=== PATIENT | male | born 1945 | race Caucasian/White ===

== ENCOUNTER 2019-08-25 13:49 | Emergency (ER) | payer MEDICARE, OTHER ==
--- NOTE | 2019-08-25 16:24 | RAD REPORT ---
EXAM DESCRIPTION: RAD - Ribs Left - 08/25/2019 4:14 pm CLINICAL HISTORY: Trip and fall, left-sided rib pain COMPARISON: None. FINDINGS: No displaced rib fracture is seen and no non-displaced rib fractures suspected. No aggress nik rib lesion. No underlying pneumothorax, effusion, infiltrate or pulmonary contusion. Patient has prominent costochondral calcifications. IMPRESSION: Negative left rib series. If there are continued concerns for rib fracture for need for a definitive assessment, CT chest imagi ng could be performed.
--- NOTE | 2019-08-25 16:32 | RAD REPORT ---
EXAM DESCRIPTION: RAD - Chest Single View - 08/25/2019 4:14 pm CLINICAL HISTORY: s/p fall;Chest pain COMPARISON: Rib series same date, no remote imaging TECHNIQUE: AP portable chest image was obtained 08/25/2019 4:14 pm . FINDINGS: No pulmonary contusion or focal lung parenchymal process. Interstitial pattern is prominen t. No comparison is available. In the absence of acute respiratory symptoms this is probably the leo ent's baseline chronic pattern. Heart and vasculature are normal. No measurable pleural effusion and no pneumothorax. No acute bony abnormality seen. No acute aortic findings suspected. IMPRESSION: No acute cardiopulmonary process.
--- NOTE | 2019-08-25 16:39 | RAD REPORT ---
EXAM DESCRIPTION: CT - [id number] - 08/25/2019 4:24 pm CLINICAL HISTORY: fall COMPARISON: No comparisons TECHNIQUE: Axial 5 mm thick images of the head were obtained. Axial 2 mm thick images of the cervic al spine were obtained with sagittal and coronal reconstruction images generated and reviewed. All CT scans are performed using dose optimization technique as appropriate and may include automated exposure control or mA/KV adjustment according to patient size. FINDINGS: No intracranial hemorrhage, mass, edema or acute intracranial finding. No suspicion for ac naga infarction. No extra-axial fluid collections. Patient has mild atrophy. Chronic ischemic changes minimal. Ventricles are in proportion to volume loss. No globe or orbit abnormality seen. Arterial an d physiologic calcifications are present. Mastoid air cells are clear. Chronic sinusitis changes are present in each maxillary sinus with mucos al thickening in the ethmoid and sphenoid sinuses. Chronic sinusitis wall changes are seen in the sph enoid sinus. No air-fluid levels. No globe or orbital content abnormality. Cervical bodies are normal in height. There is slight retrolisthesis of C5 relative to C4 and C6. Pat ient has advanced degenerative change at the dens C1 articulation. C5-6 significant disc space narrow ing with endplate spurring. Multilevel facet joint degenerative changes are present. No fracture or a cute bony abnormality. No pathologic bone process. Bilateral foraminal stenosis at C5-6 from uncovert ebral joint hypertrophy. Posterior endplate spurring changes cause central spinal stenosis down to ap proximately 7 mm. Central canal detail is inherently limited. No paraspinal mass or hematoma. IMPRESSION: Negative CT head examination for acute or significant finding intracranial finding. Negative CT cervical spine examination for fracture or acute finding. Prominent C5-6 degenerative changes causing central spinal stenosis and bilateral foraminal stenosis. Central canal detail is inherently limited. Chronic sinusitis involving the maxillary, sphenoid and possibly ethmoid air cells.
--- NOTE | 2019-08-25 17:02 | EDPHYS ---
Physician Documentation [facility] Name: Hadley Braun Age: 73 yrs Sex: Male : 1945 Arrival Date: 08/25/2019 Time: 13:56 Bed 19 Private MD: [facility] ED Physician Herson Portillo HPI: 08/24 18:21 This 73 yrs old Male presents to ER via Wheelchair with complaints of Fall kdr Injury. 18:21 Details of fall: The patient fell from an upright position, while standing. Onset: The kdr symptoms/episode began/occurred suddenly, this morning, at 11:30. Associated injuries: The patient sustained injury to the head, contusion, injury to the chest, contusion, pain with breathing. Severity of symptoms: At their worst the symptoms were mild, in the emergency department the symptoms are unchanged. The patient has not experienced similar symptoms in the past. The patient has not recently seen a physician. Historical: - Allergies: 14:06 PENICILLINS; tw2 - Home Meds: 14:06 warfarin 5 mg Oral tab 1 tab once daily [Active]; pravastatin 20 mg oral tab 1 tab once tw2 daily [Active]; hydrochlorothiazide 25 mg Oral tab 1 tab 2 times per day [Active]; quanipriil 20 mg 1 tab once a day [Active]; gabapentin 300 mg oral cap 1 cap 3 times per day [Active]; - PMHx: 14:06 Hypertension; Atrial Fib; tw2 - PSHx: 14:06 umbilican hernia; b/l knee replacement; tw2 - Immunization history:: Adult Immunizations. - Social history:: Smoking status: Patient uses. - Immunization history: Last tetanus immunization: unknown. ROS: 18:21 Constitutional: Negative for fever, chills, and weight loss, Eyes: Negative for injury, kdr pain, redness, and discharge, Neck: Negative for injury, pain, and swelling, Respiratory: Negative for shortness of breath, cough, wheezing, and pleuritic chest pain, Abdomen/GI: Negative for abdominal pain, nausea, vomiting, diarrhea, and constipation, Back: Negative for injury and pain, : Negative for injury, bleeding, discharge, and swelling, MS/Extremity: Negative for injury and deformity, Skin: Negative for injury, rash, and discoloration, Neuro: Negative for headache, weakness, numbness, tingling, and seizure activity. Psych: Negative for depression, anxiety, suicide ideation, homicidal ideation, and hallucinations, Allergy/Immunology: Negative for hives, rash, and allergies, Endocrine: Negative for neck swelling, polydipsia, polyuria, polyphagia, and marked weight changes, Hematologic/Lymphatic: Negative for swollen nodes, abnormal bleeding, and unusual bruising. 18:21 Cardiovascular: Positive for chest pain, with cough, with movement, of the anterior aspect of left upper chest and left lateral anterior chest, Negative for edema, orthopnea, palpitations, paroxysmal nocturnal dyspnea. Exam: 18:21 Constitutional: This is a well developed, well nourished patient who is awake, alert, kdr and in no acute distress. Head/Face: Normocephalic, atraumatic. Eyes: Pupils equal round and reactive to light, extra-ocular motions intact. Lids and lashes normal. Conjunctiva and sclera are non-icteric and not injected. Cornea within normal limits. Periorbital areas with no swelling, redness, or edema. Neck: Trachea midline, no thyromegaly or masses palpated, and no cervical lymphadenopathy. Supple, full range of motion without nuchal rigidity, or vertebral point tenderness. No Meningismus. Cardiovascular: Regular rate and rhythm with a normal S1 and S2. No gallops, murmurs, or rubs. Normal PMI, no JVD. No pulse deficits. Respiratory: Lungs have equal breath sounds bilaterally, clear to auscultation and percussion. No rales, rhonchi or wheezes noted. No increased work of breathing, no retractions or nasal flaring. Abdomen/GI: Soft, non-tender, with normal bowel sounds. No distension or tympany. No guarding or rebound. No evidence of tenderness throughout. Back: No spinal tenderness. No costovertebral tenderness. Full range of motion. Skin: Warm, dry with normal turgor. Normal color with no rashes, no lesions, and no evidence of cellulitis. MS/ Extremity: Pulses equal, no cyanosis. Neurovascular intact. Full, normal range of motion. Neuro: Awake and alert, GCS 15, oriented to person, place, time, and situation. Cranial nerves II-XII grossly intact. Motor strength 5/5 in all extremities. Sensory grossly intact. Cerebellar exam normal. Normal gait. Psych: Awake, alert, with orientation to person, place and time. Behavior, mood, and affect are within normal limits. 18:21 Chest/axilla: Inspection: normal, Palpation: tenderness, that is mild, of the anterior aspect of left upper chest and left lateral anterior chest. Vital Signs: 14:01 BP 134 / 71; Pulse 82; Resp 17; Temp 98.5(TE); Pulse Ox 96% on R/A; Weight 129.27 kg tw2 (R); Height 5 ft. 10 in. (177.80 cm) (R); Pain 7/10; 17:05 BP 119 / 67; Pulse 76; Resp 19; Temp 98.4(O); Pulse Ox 98% on R/A; Pain 5/10; ls4 14:01 Body Mass Index 40.89 (129.27 kg, 177.80 cm) tw2 14:01 "if i move, it lessons when i sit still" tw2 [place] Coma Score: 14:09 Eye Response: spontaneous(4). Verbal Response: oriented(5). Motor Response: obeys tw2 commands(6). Total: 15. Trauma Score (Adult): 14:09 Eye Response: spontaneous(1); Verbal Response: oriented(1); Motor Response: obeys tw2 commands(2); Systolic BP: > 89 mm Hg(4); Respiratory Rate: 10 to 29 per min(4); [place] Score: 15; Trauma Score: 12 MDM: 17:01 Patient medically screened. kdr 18:21 Data reviewed: vital signs, nurses notes, lab test result(s), radiologic studies. kdr Counseling: I had a detailed discussion with the patient and/or guardian regarding: the historical points, exam findings, and any diagnostic results supporting the discharge/admit diagnosis, radiology results, the need for outpatient follow up. 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 Exp: ls4 05/01/2021. Lot #: [id number]. } Route: IM; Site: left deltoid; 17:37 Drug: Tylenol 1000 mg Route: PO; ls4 Disposition: 08/25/19 17:01 Discharged to Home. Impression: Chest pain on breathing, Chest pain, unspecified, Chest Wall Contusion, Other slipping, tripping and stumbling and falls. - Condition is Stable. - Discharge Instructions: Chest Wall Pain, [id number], Nonspecific Chest Pain, [id number]. - Prescriptions for Tylenol- Codeine #3 300-30 mg Oral Tablet - take 1 tablet by ORAL route every 4-6 hours As needed; 12 tablet. - Medication Reconciliation Form, Thank You Letter, Prescription Opioid Use form. - Follow up: Wilber Cooley DO; When: 2 - 3 days; Reason: If symptoms return, Further diagnostic work-up, Recheck today's complaints, Continuance of care, Re-evaluation by your physician. - Problem is new. - Symptoms have improved. Signatures: Dispatcher [employer] EDMS Herson Portillo MD MD kdr Annie De La Cruz, RN RN tw2 Julissa Lundberg, RN RN ls4 Corrections: (The following items were deleted from the chart) 17:02 17:01 08/25/2019 17:01 Discharged to Home. Impression: Chest pain on breathing; Chest kdr pain, unspecified; Chest Wall Contusion. Condition is Stable. Forms are Medication Reconciliation Form, Thank You Letter, Antibiotic Education, Prescription Opioid Use. Follow up: Wilber Cooley; When: 2 - 3 days; Reason: If symptoms return, Further diagnostic work-up, Recheck today's complaints, Continuance of care, Re-evaluation by your physician. Problem is new. Symptoms have improved. kdr 17:44 17:02 08/25/2019 17:01 Discharged to Home. Impression: Chest pain on breathing; Chest ls4 pain, unspecified; Chest Wall Contusion; Other slipping, tripping and stumbling and falls. Condition is Stable. Forms are Medication Reconciliation Form, Thank You Letter, Antibiotic Education, Prescription Opioid Use. Follow up: Wilber Cooley; When: 2 - 3 days; Reason: If symptoms return, Further diagnostic work-up, Recheck today's complaints, Continuance of care, Re-evaluation by your physician. Problem is new. Symptoms have improved. kdr
--- NOTE | 2019-08-25 17:02 | ER ---
Nurse's Notes [facility] Name: Hadley Braun Age: 73 yrs Sex: Male : 1945 Arrival Date: 08/25/2019 Time: 13:56 Bed 19 Private MD: Wilber Cooley Diagnosis: Chest pain on breathing;Chest pain, unspecified;Chest Wall Contusion;Other slipping, tripping and stumbling and falls Presentation: 08/24 14:01 Chief complaint: Patient states: i got tripped up about 1130 or so today, i was loading tw2 some stuff and i tripped on something and i that ragged edge on the concrete and my face hit the concrete, i think my chest and LEFT arm hit and then my face hit, and if i cough down on my ribs on the LEFT hurt. Coronavirus screen: Patient denies a cough. Patient denies shortness of breath or difficulty breathing. Patient denies measured and/or subjective temperature greater than 100.4F prior to today's visit. Patient denies travel on a cruise ship or to a country the [facility] currently lists as an affected area. Patient denies contact with known and/or suspected case of COVID-19. Ebola Screen: Patient denies travel to an Ebola-affected area in the 21 days before illness onset. Initial Sepsis Screen: Does the patient meet any 2 criteria? No. Patient's initial sepsis screen is negative. Does the patient have a suspected source of infection? No. Patient's initial sepsis screen is negative. Risk Assessment: Do you want to hurt yourself or someone else? Patient reports no desire to harm self or others. Onset of symptoms. Onset of symptoms was August 25, 2019. 14:01 Method Of Arrival: Wheelchair tw2 14:01 Acuity: ALEXSANDRA 3 tw2 14:07 Care prior to arrival: None. Mechanism of Injury: Fall from standing position. Trauma tw2 event details: Injury occurred in the [facility]. Triage Assessment: 14:03 General: Appears in no apparent distress. obese, well groomed, Behavior is calm, tw2 cooperative, appropriate for age. Pain: Complains of pain in chest and left arm. Trauma Activation: Alert Physician: ED Physician; Name: ; Notified At: ; Arrived At: Physician: General Surgeon; Name: ; Notified At: ; Arrived At: Physician: Radiology; Name: ; Notified At: ; Arrived At: Physician: Respiratory; Name: ; Notified At: ; Arrived At: Physician: Lab; Name: ; Notified At: ; Arrived At: Historical: - Allergies: 14:06 PENICILLINS; tw2 - Home Meds: 14:06 warfarin 5 mg Oral tab 1 tab once daily [Active]; pravastatin 20 mg oral tab 1 tab once tw2 daily [Active]; hydrochlorothiazide 25 mg Oral tab 1 tab 2 times per day [Active]; quanipriil 20 mg 1 tab once a day [Active]; gabapentin 300 mg oral cap 1 cap 3 times per day [Active]; - PMHx: 14:06 Hypertension; Atrial Fib; tw2 - PSHx: 14:06 umbilican hernia; b/l knee replacement; tw2 - Immunization history:: Adult Immunizations. - Social history:: Smoking status: Patient uses. - Immunization history: Last tetanus immunization: unknown. Screenin:20 Abuse screen: Denies threats or abuse. Denies injuries from another. Tuberculosis ls4 screening: No symptoms or risk factors identified. 15:32 Nutritional screening: No deficits noted. Fall Risk Total Davidson Fall Scale indicates ls4 High Risk Score (45 or more points). Fall prevention measures have been instituted. Side Rails Up X 2 Placed Close to Nursing Station Frequent Obs/Assessments Occuring Family Present and informed to notify staff if the need to leave the bedside As available patient and family educated on Fall Prevention Program and Strategies. Primary Survey: 14:09 NO uncontrolled hemorrhage observed. A: The patient is alert. Airway: patent. tw2 Breathing/Chest: Respiratory pattern: regular, Respiratory effort: spontaneous, unlabored, Chest inspection: symmetrical rise and fall of the chest. Circulation: Heart tones present. Disability Alert. Exposure/Environment: All clothing and personal items were removed. Forensic evidence collection is not deemed to be indicated at this time. Items placed in patient belonging bag. 14:09 Reassessment Airway Airway Patent Breathing/Chest Respiratory pattern Regular ls4 Respiratory effort Spontaneous Unlabored Breath sounds Clear Chest inspection Symmetrical Circulation Heart rhythm Sinus rhythm Heart tones Present Pulses Palpable Color [place] Flushed Temperature Warm Dry Disability Alert. Secondary Survey: 15:19 HEENT: No deficits noted. Gastrointestinal: No deficits noted. Abdomen is soft, ls4 non-distended, obese, Bowel sounds present in all quadrants. Palpation No deficit noted : No deficits noted. No signs and/or symptoms were reported regarding the genitourinary system. Musculoskeletal: No deficits noted. No signs and/or symptoms reported regarding the musculoskeletal system. Injury Description: skin tear s to left forearm. Assessment: 14:07 General: Appears in no apparent distress. comfortable. Neuro: No deficits noted. ls4 Cardiovascular: Denies chest pain, diaphoresis, fatigue, lightheadedness, nausea, palpitations, shortness of breath, syncope, vomiting. Respiratory: Airway is patent Respiratory effort is even, unlabored. Respiratory: Breath sounds are clear bilaterally. Derm: Skin is fragile, with poor turgor has skin tears on left forearm. Musculoskeletal: No signs and/or symptoms reported regarding the musculoskeletal system. Circulation, motion, and sensation intact. Capillary refill < 3 seconds, Range of motion: intact in all extremities. 17:38 Reassessment: Patient appears in no apparent distress at this time. Patient and/or ls4 family updated on plan of care and expected duration. Pain level reassessed. Patient is alert, oriented x 3, equal unlabored respirations, skin warm/dry/pink. skin tears cleaned and dressed. neosporing and tegaderm Patient states feeling better. Patient states symptoms have improved. Vital Signs: 14:01 BP 134 / 71; Pulse 82; Resp 17; Temp 98.5(TE); Pulse Ox 96% on R/A; Weight 129.27 kg tw2 (R); Height 5 ft. 10 in. (177.80 cm) (R); Pain 7/10; 17:05 BP 119 / 67; Pulse 76; Resp 19; Temp 98.4(O); Pulse Ox 98% on R/A; Pain 5/10; ls4 14:01 Body Mass Index 40.89 (129.27 kg, 177.80 cm) tw2 14:01 "if i move, it lessons when i sit still" tw2 [place] Coma Score: 14:09 Eye Response: spontaneous(4). Verbal Response: oriented(5). Motor Response: obeys tw2 commands(6). Total: 15. Trauma Score (Adult): 14:09 Eye Response: spontaneous(1); Verbal Response: oriented(1); Motor Response: obeys tw2 commands(2); Systolic BP: > 89 mm Hg(4); Respiratory Rate: 10 to 29 per min(4); Amy Score: 15; Trauma Score: 12 ED Course: 13:56 Patient arrived in ED. mr 13:56 Wilber Cooley DO is Private Physician. mr 14:03 Triage completed. tw2 14:03 Arm band placed on. tw2 14:09 Thermoregulation: warm blanket given to patient. ls4 14:18 Herson Portillo MD is Attending Physician. kdr 15:00 Julissa Lundberg RN is Primary Nurse. ls4 15:20 Patient has correct armband on for positive identification. Placed in gown. Bed in low ls4 position. Call light in reach. Side rails up X 1. Patient maintains SpO2 saturation greater than 95% on room air. monitoring and evaluation advisor on. Pulse ox on. NIBP on. 15:20 No provider procedures requiring assistance completed. Patient maintains SpO2 ls4 saturation greater than 95% on room air. 15:31 No apparent distress. Resting quietly. ls4 16:14 Chest Single View XRAY In Process Unspecified. EDMS 16:14 Ribs Left XRAY In Process Unspecified. EDMS 16:25 CT Head C Spine In Process Unspecified. EDMS 17:00 Wilber Cooley DO is Referral Physician. kdr 17:40 IV discontinued, intact, bleeding controlled, No redness/swelling at site. Pressure ls4 dressing applied. 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 Exp: ls4 05/01/2021. Lot #: [id number]. } Route: IM; Site: left deltoid; 17:37 Drug: Tylenol 1000 mg Route: PO; ls4 Intake: 17:40 PO: 0ml; Total: 0ml. ls4 Output: 17:40 Urine: 400ml (Voided); Total: 400ml. ls4 Outcome: 17:01 Discharge ordered by . kdr 17:44 Patient left the ED. ls4 17:44 Discharged to home ambulatory. ls4 17:44 Condition: stable 17:44 Discharge instructions given to patient, Instructed on discharge instructions, follow up and referral plans. medication usage, safety practices, incentive spirometer Demonstrated understanding of instructions, follow-up care, medications, Prescriptions given X 1. Signatures: Dispatcher [employer] EDHerson Francisco MD MD kdr Rivera, Mary mr Annie De La Cruz RN RN tw2 Julissa Lundberg RN RN ls4
[2019-08-25] MEDS ORDERED: ACETAMINOPHEN 500 MG TAB ONE (17:31)
[2019-08-25] MEDS ORDERED: TETANUS & DIPHTHERIA TOX,ADULT 0.5 ML VIAL ONE (17:31)
[2019-08-25 17:55] VITALS: BP 119/67; TEMP 98.4; O2SAT 98
--- OUTSIDE RECORDS SUMMARY | 2019-08-25 19:18 | XMS REPORT | Continuity of Care Document ---
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 [facility] Cataract, Cataract, Problem Active [facility] unspecifie unspecifie Ama kes - d cataract d cataract Me moria type, type, l unspecifie unspecifie Ou tpati d d ent laterality laterality Cl inics Acute low Acute low Problem Active [facility] back pain [facility] pain [facility] Seasonal Seasonal Problem Active [facility] Vitamin D Vitamin D Problem Active [facility] deficiency deficiency [facility] Atrial Atrial Problem Active [facility] fibrillati fibrillati [facility] - on on [facility] Hyperlipid Hyperlipid Problem Active [facility] emia emia [facility] Benign Benign Problem Active [facility] essential essential [facility] - HTN HTN [facility] Body mass Body mass Problem Active [facility] index index [facility] - (BMI) (BMI) Memoria 40.0-44.9, 40.0-44.9, l adult adult Outpati ent Clinics Morbid Morbid Problem Active [facility] (severe) (severe) [facility] - obesity obesity Memoria due to due to l excess excess Outpati calories calories ent Clinics Medicare Medicare Diagnosis Active [facility] annual annual [facility] wellness wellness [facility] a visit, visit, l subsequent subsequent Ou tpati ent Clinics Allergies, Adverse Reactions, Alerts This patient has no known allergies or adverse reactions. Medications Ordered Filled Start Stop Current Ordering Indication Dosage Frequency Signature Comments Components Source Medication Medication Date Date Medication? Clinician (SIG) Name Name Dora Ortize Yes Wilber not [facility] defined [facility] Zyrtec Zyrtec Yes Wilber not [facility] Allergy Allergy [facility] defined [facility] Gabapentin Gabapentin Yes W[place]ler [address] [facility] Co[facility] Warfarin Warfarin Yes Wilber [address] Sodium Sodium [facility] Hydrochloro Hydrochloro Yes Wilber [address] [facility] thiazide thiazide [facility] in the [facility] - morning [facility] Clinics Pravastatin Pravastatin Yes Wilber TAKE [address] [facility] Sodium Sodium [facility] TABLET BY [facility] - MOUTH ONCE Memoria A DAY [facility] Quinapril Quinapril Yes Wilber [address] [facility] HCl HCl [facility] Procedures This patient has no known procedures. Encounters Start End Encounter Admission Attending Care Care Encounter Source Date/Time Date/Time Type Type Clinicians Facility Department ID 2019-08-21 2019-08-21 [facility] [id number] [facility] 08:[facility]00 08[facility]00:00 [facility] 2019-08-21 2019-08-21 [facility] [id number] [facility] 08:00:00 08:00:00 [facility] 2019-08-03 2019-08-03 [facility] [id number] [facility] 12:07:00 12:07:00 [facility] Clin[facility] 2019-05-19 2019-05-19 [facility] [id number] 11:30:00 11:30:00 [facility] [employer] [facility] ent Clinics Results This patient has no known results.
--- OUTSIDE RECORDS SUMMARY | 2019-08-25 19:18 | XMS REPORT ---
:1945 Author Organization [employer] Care Team Providers Name Role Phone Jarad Cooleyh Provider Role Unavailable Allergies, Adverse Reactions, Alerts Substance Reaction Event Type N.K.D.A. Info Not Available Non Drug Allergy Problems Problem Type Condition Code Onset Dates Condition Statu s Problem Memory loss R41.3 Active Problem Vitamin D deficiency E55.9 Active Problem Atrial fibrillation I48.91 Active Assessment Medicare annual wellness visit, Z00.00 Active subsequent Problem Pre-diabetes R73.03 Active Problem Idiopathic peripheral neuropathy G60.9 Active Problem Body mass index (BMI) 40.0-44.9, Z68.41 Active adult Problem Seasonal allergies J30.2 Active Problem Morbid (severe) obesity due to E66.01 Active excess calories Problem Hyperlipidemia E78.5 Active Problem Benign essential HTN I10 Active Problem Cataract, unspecified cataract type, H26.9 Active unspecified laterality Problem Acute low back pain M54.5 Active Medications Medication Code Code Instructions Start End Status Dosage System Date Date Gabapentin [facility] 10655031185 300 MG Orally Active 1 c apsule bid Hydrochlorothiazide [facility] 52487239550 25 MG Orally Act nik 1 tablet Once a day in the morning Zyrtec Allergy [facility] [address]-34 Active not defined Pravastatin Sodium [facility] 25572949937 20 MG Active T VAUGHN 1 TABLET BY MOUTH ONCE A DAY Quinapril HCl [facility] 38256653103 20 MG Orally Active 1 tablet Once a day Flonase [facility] 72579949820 Active not defined Warfarin Sodium [facility] 83929384512 5 MG Orally Active 1 tablet Once a day Results No Known Results Summary Purpose [employer] Submission
--- OUTSIDE RECORDS SUMMARY | 2019-08-25 19:18 | XMS REPORT ---
:1945 Author Organization [employer] Care Team Providers Name Role Phone Yasir Wilber Provider Role Unavailable Allergies No Known Allergies Problems Problem Type Condition Code Onset Dates Condition Statu s Problem Pre-diabetes R73.03 Active Problem Memory loss R41.3 Active Problem Idiopathic peripheral neuropathy G60.9 Active Problem Cataract, unspecified cataract type, H26.9 Active unspecified laterality Problem Acute low back pain M54.5 Active Problem Seasonal allergies J30.2 Active Problem Vitamin D deficiency E55.9 Active Problem Atrial fibrillation I48.91 Active Problem Hyperlipidemia E78.5 Active Problem Benign essential HTN I10 Active Medications No Known Medications Results No Known Results Summary Purpose [employer] Submission
--- OUTSIDE RECORDS SUMMARY | 2019-08-25 19:18 | XMS REPORT ---
:1945 Author Organization [employer] Care Team Providers Name Role Phone Jarad Cooleyh Provider Role Unavailable Allergies, Adverse Reactions, Alerts Substance Reaction Event Type N.K.D.A. Info Not Available Non Drug Allergy Problems Problem Type Condition Code Onset Dates Condition Statu s Assessment Body mass index (BMI) 40.0-44.9, Z68.41 Active adult Assessment Morbid (severe) obesity due to E66.01 Active excess calories Problem Pre-diabetes R73.03 Active Assessment Unknown skin lesion L98.9 Active Problem Idiopathic peripheral neuropathy G60.9 Active Assessment Neck pain M54.2 Active Problem Memory loss R41.3 Active Problem Vitamin D deficiency E55.9 Active Problem Atrial fibrillation I48.91 Active Problem Body mass index (BMI) 40.0-44.9, Z68.41 Active adult Problem Seasonal allergies J30.2 Active Assessment Pre-diabetes R73.03 Active Assessment Vitamin D deficiency E55.9 Active Problem Morbid (severe) obesity due to E66.01 Active excess calories Assessment Cataract, unspecified cataract type, H26.9 Active unspecified laterality Problem Hyperlipidemia E78.5 Active Problem Benign essential HTN I10 Active Problem Cataract, unspecified cataract type, H26.9 Active unspecified laterality Problem Acute low back pain M54.5 Active Assessment Idiopathic peripheral neuropathy G60.9 Active Assessment Lower urinary tract symptoms (LUTS) R39.9 Active Assessment Seasonal allergies J30.2 Active Assessment Memory loss R41.3 Active Assessment Benign essential HTN I10 Active Assessment Atrial fibrillation I48.91 Active Assessment Hyperlipidemia E78.5 Active Medications Medication Code Code Instructions Start End Status Dosage System Date Date Hydrochlorothiazide [facility] 92735158330 25 MG Orally Act nik 1 tablet Once a day in the morning Quinapril HCl [facility] 56300220603 20 MG Orally Active 1 tablet Once a day Pravastatin Sodium [facility] 39247913163 20 MG Active T VAUGHN 1 TABLET BY MOUTH ONCE A DAY Flonase [facility] 73568782547 Active not defined Zyrtec Allergy [facility] [address]-44 Active not defined Warfarin Sodium [facility] 70428817167 5 MG Orally Active 1 tablet Once a day Gabapentin [facility] 65163805027 300 MG Orally Active 1 c apsule TID Results No Known Results Summary Purpose [employer]ClinicalWorks Submission
== END 2019-08-25 17:44 | disposition home or self-care (01) ==
LOC: ER 13:49
DX: S20.219A Contusion of unspecified front wall of thorax, initial encounter (principal); R07.9 Chest pain, unspecified; W01.0XXA Fall on same level from slipping, tripping and stumbling without subsequent striking against object, initial encounter; Y93.89 Activity, other specified; Y92.9 Unspecified place or not applicable; Z23 Encounter for immunization; Z79.01 Long term (current) use of anticoagulants; Z88.0 Allergy status to penicillin; I10 Essential (primary) hypertension; I48.91 Unspecified atrial fibrillation
CPT/HCPCS: 70450; 71045; 72125; 90471; 90714; 99285